=== PATIENT | female | born 1940 | race Caucasian/White ===

== ENCOUNTER → 2024-03-31 09:46 | Outpatient (REF) | payer MEDICARE, BC, SELFPAY ==
[2024-03-31 10:59] LABS: % Basophils 1.1 % (0-2); % Eosinophils 4.7 % (0-6); % Immature Granulocytes 0.2 % (0-0.5); % Lymphocytes 30.6 % (20.5-51.1); % Monocytes 13.2 % (1.7-9.3); % Neutrophils 50.2 % (42.2-75.2); Absolute Basophils 0.1 10^3/uL (0-0.2); Absolute Eosinophils 0.3 10^3/uL (0-0.7); Absolute Lymphocytes 1.9 10^3/uL (1.2-3.4); Absolute Monocytes 0.8 10^3/uL (0.1-0.6); Absolute Neutrophils 3.1 10^3/uL (1.4-6.5); Hematocrit 28.6 % (37.0-47.0); Mean Corp Hgb Conc. 31.5 g/dL (33.0-37.0); Mean Corpuscular Hgb 24.9 pg (27.0-31.0); Mean Corpuscular Volume 79.2 fL (81.0-99.0); Nucleated Red Blood Cells % 0 %; Platelet Count 181 10^3/uL (130-400); Red Blood Cell Count 3.61 10^6/uL (4.20-5.40); Red Cell Dist. Width 15.8 % (11.5-14.5); White Blood Cell Count 6.2 10^3/uL (4.8-10.8)
[2024-03-31 11:00] LABS: INR 1.41
[2024-03-31 11:58] LABS: ALT (SGPT) 18 U/L (0-35); AST (SGOT) 37 U/L (14-36); Albumin 3.5 g/dl (3.5-5.0); Alkaline Phosphatase 156 U/L (38-126); Blood Urea Nitrogen 15 mg/dl (7-17); Calcium 8.7 mg/dl (8.4-10.2); Carbon Dioxide 25 mmol/L (22-30); Chloride 109 mmol/L (98-107); Glucose 96 mg/dl (70-99); Iron 45 ug/dl (37-170); Potassium 4.4 mmol/L (3.5-5.1); Sodium 141 mmol/L (135-145); Total Bilirubin 0.7 mg/dl (0.2-1.3); eGFR > 60.00
[2024-03-31 12:04] LABS: IgA 209 mg/dl (70-400)
[2024-03-31 12:08] LABS: Percent Saturation 10 % (20-50); Total Iron Binding Capacity 449 ug/dl (265-497)
[2024-03-31 14:33] LABS: Rheumatoid Agglutinin Less Than 10 IU (<10 IU)
[2024-03-31 20:16] LABS: AFP Male/Tumor Marker 4.26 ng/ml
[2024-04-01 18:50] LABS: Ceruloplasmin 26 mg/dL (16-45)
[2024-04-02 02:03] LABS: CCP Antibody IgG/IgA 7 Units (0-19)
[2024-04-02 02:45] LABS: F-Actin Antibody IgG 14 Units (0-19); Mitochondrial M2 Ab, IgG 9.6 Units (0.0-24.9)
[2024-04-02 11:21] LABS: Centromere Antibody 1 AU/mL (0-40); Jo-1 Antibodies 1 AU/mL (0-40); SSA 52 (Ro)(ENA) Ab, IgG 4 AU/mL (0-40); SSA 60 (Ro)(ENA) Ab, IgG 0 AU/mL (0-40); SSB (La)(ENA) Ab, IgG 1 AU/mL (0-40); Scleroderma Antibody (Scl-70) 1 AU/mL (0-40)
[2024-04-02 16:13] LABS: Endomysial IgA Antibody Titer <1:10 (<1:10)
[2024-04-02 22:33] LABS: ANA, IgG Reflex to HEp-2 Detected (None Detected)
== END ==
LOC: REG 09:46
PROVIDERS: ATTENDING PHYSICIAN Internal Medicine Gastroenterology; FAMILY PHYSICIAN Nurse Practitioner Adult Health; REFERRING PHYSICIAN Internal Medicine Critical Care Medicine
DX: J18.9 Pneumonia, unspecified organism (principal); N18.30 Chronic kidney disease, stage 3 unspecified; I48.0 Paroxysmal atrial fibrillation; R79.89 Other specified abnormal findings of blood chemistry; J84.10 Pulmonary fibrosis, unspecified
CPT/HCPCS: 36415; 80053; 82103; 82104; 82105; 82390; 82728; 82784; 83516; 83540; 83550; 85025; 85610; 86015; 86038; 86200; 86231; 86235; 86331; 86381; 86430; 86606

== ENCOUNTER 2024-04-27 16:18 | Emergency (ER) | payer MEDICARE, BC, SELFPAY ==
[2024-04-27 16:23] VITALS: BP 124/56
[2024-04-27 16:52] LABS: APTT 31.6 Sec (23.4-35.0)
[2024-04-27 17:00] LABS: ALT (SGPT) 19 U/L (0-35); AST (SGOT) 39 U/L (14-36); Albumin 3.6 g/dl (3.5-5.0); Alkaline Phosphatase 141 U/L (38-126); Blood Urea Nitrogen 21 mg/dl (7-17); Calcium 8.6 mg/dl (8.4-10.2); Carbon Dioxide 23 mmol/L (22-30); Chloride 107 mmol/L (98-107); Glucose 124 mg/dl (70-99); Potassium 4.7 mmol/L (3.5-5.1); Sodium 137 mmol/L (135-145); Total Bilirubin 0.4 mg/dl (0.2-1.3); Total Protein 7.8 g/dl (6.3-8.2); eGFR 49.24
[2024-04-27 18:05] VITALS: BP 126/52
--- NOTE | 2024-04-27 18:22 | ED.GENMED ---
History of Present Illness
General
Chief Complaint: Weakness
Source: patient and spouse
Exam Limitations: none
Time Seen by Provider: 04/27/24 17:54
History of Present Illness
History of Present Illness:
This is a 83 year old female that comes in with . states that she has been having nose bleeds for the past 3 weeks. States that she will have a severe nose bleed 3 times a week. States that she was on Eliquis and he stopped this last
night. called the PCP today and patient has labs done last month and she looked at them. state that her Hgb was low and with the nose bleeding he was told to bring her to the ER. States that she has been feeling weak, lightheaded and dizzy
as the room is spinning. States that she has oxygen at home to use if she needed this and she has been using the oxygen more then her normal as she feels SOB. Denies any fever, chills, chest pain, abd pain, nausea, vomiting, diarrhea, black or
bloody stool, headache, urinary burning.
Past History
Past History
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
ED Past Surgical History: Cholecystectomy, Gynecological (Hysterectomy), Orthopedic (Knee surgery, Right shoulder replacement, Right ankle sx) and Other ( Spencer Cataracts)
Social History
Tobacco: Former smoker
Alcohol: None
Drug: None
Personal:
Living: with family
Family History
Family History: Other
Review of Systems
Review of Systems
All Other Systems: ROS reviewed and negative except as documented in HPI and ROS
Constitutional: Reports no symptoms; Denies fever or chills
EENT: Reports no symptoms
Respiratory: Reports trouble breathing; Denies cough
Cardiac: Reports no symptoms; Denies chest pain
ABD/GI: Reports no symptoms; Denies abdominal pain, nausea, vomiting, diarrhea, bloody stools or black stools
: Reports no symptoms; Denies dysuria, frequency or urgency
Musculoskeletal: Reports no symptoms
Skin: Reports no symptoms
Neurological: Reports dizzy (Not at this time); Denies headache
Psychiatric: Reports no symptoms
Phy Exam
General Physical Exam
General Presentation: no apparent distress
General age: appears stated age
General Skin: warm and dry
General Habitus: elderly
General Mental: alert
General Hydration: appears well hydrated
ENT Exam
ENT Exam: TM's normal, pharynx normal and neck supple
Eye Exam
Eye Exam: EOMI
Cardiovascular Exam
Cardiovascular Exam: regular rate/rhythm, no edema and normal peripheral pulses
Pulmonary Exam
Pulmonary Exam: lungs clear, no respiratory distress, no rales, chest non tender, no crackles, no rhonchi, no wheezing and no cough
Gastrointestinal Exam
Gastrointestinal Exam: normal bowel sounds, non tender, soft, no organomegaly, no pulsatile mass, non distended and other (Stool brown hem negative)
Musculoskeletal Exam
Musculoskeletal Exam: full ROM and no edema
Skin Exam
Skin Exam: normal color, warm/dry, no rash and no petechia
Psychiatric Exam
Psychiatric Exam: normal mood/affect
Course
Orders/Labs/Results
Orders:
Orders
04/27/24 16:31
Comprehensive Metabolic Panel Urgent
PTT Urgent
TSH Reflex To Free T4 Urgent
Comment: ADD ON
04/27/24 18:12
CT Head W/o Iv Contrast Urgent
Comment: 3 prior CVA
Reason For Exam: Dizziness
04/27/24 18:13
0.9% Sodium Chloride 500 ml [Nss] 500 ml IV BOLUS
CR Chest - 2 Views Urgent
Comment:
Reason For Exam: SOB
04/27/24 18:14
Electrocardiogram (*1) Urgent
Reason for Study: Shortness of Breath
EKG- Treatment ONCE
04/27/24 18:27
Troponin I Urgent
04/27/24 18:30
Add On- LAB Urgent
Tests Added?: TSH with reflex Free T4
04/27/24 18:59
Complete Blood Count/With Diff Urgent
04/27/24 21:03
Urinalysis Reflex To Culture Urgent
Date Specimen was Collected: 04/27/24
Time Specimen was Collected: 20:58
Urine Microscopic Reflex Cult Urgent
Urine Culture Urgent
KATHIA Source: U
Specimen Description:
Date Specimen was Collected: 04/27/24
Time Specimen was Collected: 20:58
Abnormal Lab Results
04/27/24 04/27/24 04/27/24
16:31 18:59 21:03
RBC 3.46 L 10^6/uL
(4.20-5.40)
Hgb 8.2 L g/dL
(12.0-16.0)
Hct 26.4 L %
(37.0-47.0)
MCV 76.3 L fL
(81.0-99.0)
MCH 23.7 L pg
(27.0-31.0)
MCHC 31.1 L g/dL
(33.0-37.0)
RDW 16.3 H %
(11.5-14.5)
MPV 12.8 H fL
(7.4-10.4)
Absolute Monos (auto) 1.0 H 10^3/uL
(0.1-0.6)
Monocytes % 14.2 H %
(1.7-9.3)
BUN 21 H mg/dl
(7-17)
Creatinine 1.1 H mg/dL
(0.6-1.0)
Glucose 124 H mg/dl
(70-99)
AST 39 H U/L
(14-36)
Alkaline Phosphatase 141 H U/L
(38-126)
Leukocyte Esterase Rfl 1+ A
(Negative)
Urine WBC (Reflex) 11-15 A /HPF
(0-5)
Urine Bacteria (Reflex) Many A
(Negative)
04/27/24 18:59
04/27/24 16:31
H/H slightly low. Anemic, Slight Dehydration. Glucose nonfasting. AST slightly elevated. Alk phos elevation. PT 31.6, Troponin <0.012, TSH normal at 1.79, Urine positive for infection.
Vital Signs
Initial and Last Documented VS:
Initial Vital Signs
Temp Pulse Resp BP Pulse Ox
98.3 F 58 20 124/56 93
04/27/24 16:23 04/27/24 16:23 04/27/24 16:23 04/27/24 16:23 04/27/24 16:23
Last Documented Vital Signs
Temp Pulse Resp BP Pulse Ox
98.3 F 70 15 156/71 94
04/27/24 16:23 04/27/24 22:15 04/27/24 22:15 04/27/24 22:00 04/27/24 22:15
MDM/Problems Addressed
Differential Diagnosis Includes:
Anemia, CVA, UTI, Dehydration
MDM/Problems Addressed:
This is a 83 year old female that was on Eliquis up until last night. states that he stopped the Eliquis as patient keeps getting nose bleeds that are severe. State that he called the PCP and they looked at labs that were a month ago and he
was told that hr Hgb was low to come to the ER.
will get labs, Urine. CT head and given IV fluids.
back into see patient and . Explained that her blood work shows that she is anemic and a little dehydration. Her Urine appears to be positive for infection. Patient will be given Monurol here. Encouraged patient to increase her water intake
to 8-8oz glasses daily. Follow up with the family doctor for recheck. Return with any concerns.
Chronic conditions affecting care:
Prior CVA X 3,
Chronic conditions affecting care: CAD
Acute Exacerbation and/or Progression of Chronic Illness:
NA
*Radiology
Radiology exam reviewed: radiology read reviewed (Chest-No convincing acute cardiopulmonary process. Findings suggesting chronic interstitial lung disease CT head- NO acute intracranial abnormality noted. )
*Pulse Oximetry
Patient hypoxic: no
*Staff Nuclear Weapons Officer Interpretation
Rate: normal
Heart Rate: 63
Rhythm: sinus
*Critical Care Note
Total Time (30-74mins, 75-104mins- exclusive of procedures): Not Applicable
ED Attending Note
-
Portions of this chart may have been created with voice recognition software.� Occasional wrong word or��sound alike� substitutions may have occurred due to the inherent limitations of voice recognition software.
Discharge Plan
Departure
Patient Disposition: Home (Routine Discharge)
Date of Disposition: 04/27/24
Time of Disposition: 22:19
Patient with high blood pressure during this ER visit?: Yes
Condition: Good
Covid-19: Not Applicable
Discharge Problem:
Acute UTI (urinary tract infection)
Instructions: Urinary Tract Infection, Adult ED, BLOOD PRESSURE
Prescriptions:
No Action
bupropion HCl 150 MG tablet extended release 24 hr
150 mg PO DAILY
citalopram 40 mg tablet
40 mg PO DAILY
lisinopril 40 mg tablet
40 mg PO DAILY
famotidine 20 mg tablet
20 mg PO HS Qty: 30 0RF
Rx Instructions:
post-op
atorvastatin 20 mg tablet
20 mg PO HS Qty: 30 2RF
Rx Instructions:
with dinner
heart and stroke prevention
docusate sodium [Colace] 100 mg capsule
100 mg PO DAILY
diltiazem HCl 180 mg Capsule,Extended Release 24hr
180 mg PO DAILY Qty: 30 0RF
Eliquis 5 mg Tablet
5 mg PO BID Qty: 60 0RF
guaifenesin 600 mg Tablet Extended Release 12hr
1,200 mg PO Q12 3 Days Qty: 12 0RF
doxycycline hyclate 100 mg Capsule
100 mg PO Q12 1 Days Qty: 2 0RF
cefdinir 300 mg capsule
300 mg PO Q12H 1 Days Qty: 2 0RF
Referrals:
NONE,* [Active] -
Activity Restrictions/Additional Instructions:
As discussed, your blood work shows that you are anemic and slightly Dehydration. Please increase your water intake to 8-8oz glasses daily. Your urine also shows infection. You have been an antibiotic here that is all that is needed. Follow up with
the family doctor for recheck. IF YOU HAVE ANY OTHER CONCERNS PLEASE RETURN TO THE EMERGENCY ROOM.
Interventions
Interventions:
*Risk Screen - Suicide Last Done: 04/27/24 16:23
*General Assessment Last Done: 04/27/24 16:23
*Neglect/Abuse Screening Last Done: 04/27/24 16:23
ED- Cardiac Assessment Last Done: 04/27/24 18:00
ED- Neurological Assessment Last Done: 04/27/24 18:00
ED- Pulmonary Assessment Last Done: 04/27/24 18:00
Discharge Date and Time
Print Language: BELARUSIAN
[2024-04-27 19:00] LABS: Troponin I < 0.012 ng/ml
[2024-04-27] MEDS: NSS 500 IV (19:01)
[2024-04-27 19:06] LABS: % Basophils 1.3 % (0-2); % Eosinophils 3.6 % (0-6); % Immature Granulocytes 0.3 % (0-0.5); % Lymphocytes 28.6 % (20.5-51.1); % Monocytes 14.2 % (1.7-9.3); Absolute Basophils 0.1 10^3/uL (0-0.2); Absolute Eosinophils 0.3 10^3/uL (0-0.7); Absolute Neutrophils 3.6 10^3/uL (1.4-6.5); Hematocrit 26.4 % (37.0-47.0); Hemoglobin 8.2 g/dL (12.0-16.0); Mean Corp Hgb Conc. 31.1 g/dL (33.0-37.0); Mean Corpuscular Hgb 23.7 pg (27.0-31.0); Mean Corpuscular Volume 76.3 fL (81.0-99.0); Mean Platelet Volume 12.8 fL (7.4-10.4); Nucleated Red Blood Cells % 0 %; Platelet Count 183 10^3/uL (130-400); Red Blood Cell Count 3.46 10^6/uL (4.20-5.40); Red Cell Dist. Width 16.3 % (11.5-14.5)
[2024-04-27 19:18] VITALS: BP 128/77
[2024-04-27 19:47] LABS: TSH Reflex To Free T4 1.79 uIU/ml (0.47-4.68)
[2024-04-27 20:00] VITALS: BP 145/72
[2024-04-27 21:00] VITALS: BP 150/60
[2024-04-27 21:09] LABS: Urine Albumin Negative (Neg - Trace); Urine Bilirubin Negative (Negative); Urine Character Clear (Clear); Urine Color Yellow; Urine Glucose Negative (Negative); Urine Ketone Negative (Negative); Urine Leukocyte 1+ (Negative); Urine Nitrite Negative (Negative); Urine Occult Blood Negative (Negative); Urine Specific Gravity 1.015 (<1.030); Urine Urobilinogen 1+ (Neg - 1+); Urine pH 6.5 (5.0-9.0)
[2024-04-27 21:15] LABS: Urine Bacteria Many (Negative); Urine Red Blood Cell 0-2 /HPF (0-2)
[2024-04-27 22:00] VITALS: BP 156/71
[2024-04-27] MEDS: MONUROL 3 GM PO (22:23)
== END 2024-04-27 22:35 | disposition home or self-care (01) ==
LOC: EMR 16:18
PROVIDERS: Clinical Nurse Specialist Family Health; Emergency Medicine; EMERGENCY PHYSICIAN Emergency Medicine; FAMILY PHYSICIAN Nurse Practitioner Adult Health
DX: N39.0 Urinary tract infection, site not specified (principal); K21.9 Gastro-esophageal reflux disease without esophagitis; I10 Essential (primary) hypertension; E78.00 Pure hypercholesterolemia, unspecified; I25.2 Old myocardial infarction; E03.9 Hypothyroidism, unspecified; F32.A Depression, unspecified; D64.9 Anemia, unspecified; I25.10 Atherosclerotic heart disease of native coronary artery without angina pectoris; Z86.73 Personal history of transient ischemic attack (TIA), and cerebral infarction without residual deficits; Z87.440 Personal history of urinary (tract) infections; Z87.891 Personal history of nicotine dependence; Z90.49 Acquired absence of other specified parts of digestive tract; Z90.710 Acquired absence of both cervix and uterus; Z96.611 Presence of right artificial shoulder joint; Z96.612 Presence of left artificial shoulder joint
CPT/HCPCS: 99284; 96360; 70450; 71046; 80053; 81003; 81015; 84443; 84484; 85025; 85730; 87086; 93005

== ENCOUNTER → 2024-05-02 13:15 | Outpatient (REF) | payer MEDICARE, BC, SELFPAY | LOC: RAD 13:15 | PROVIDERS: ATTENDING PHYSICIAN Internal Medicine Critical Care Medicine; FAMILY PHYSICIAN Nurse Practitioner Adult Health | DX: J84.10 Pulmonary fibrosis, unspecified (principal) | CPT/HCPCS: 71250 ==

== ENCOUNTER 2024-05-23 13:17 | Emergency (ER) | payer MEDICARE, BC, SELFPAY ==
[2024-05-23 13:20] VITALS: BP 130/55
[2024-05-23 14:23] LABS: % Eosinophils 3.9 % (0-6); % Immature Granulocytes 0.2 % (0-0.5); % Lymphocytes 29.1 % (20.5-51.1); % Monocytes 13.6 % (1.7-9.3); % Neutrophils 52.2 % (42.2-75.2); Absolute Basophils 0.1 10^3/uL (0-0.2); Absolute Eosinophils 0.2 10^3/uL (0-0.7); Absolute Lymphocytes 1.8 10^3/uL (1.2-3.4); Absolute Monocytes 0.9 10^3/uL (0.1-0.6); Absolute Neutrophils 3.3 10^3/uL (1.4-6.5); Hematocrit 24.6 % (37.0-47.0); Hemoglobin 7.8 g/dL (12.0-16.0); Mean Corp Hgb Conc. 31.7 g/dL (33.0-37.0); Mean Corpuscular Volume 72.6 fL (81.0-99.0); Mean Platelet Volume 11.4 fL (7.4-10.4); Nucleated Red Blood Cells % 0 %; Platelet Count 206 10^3/uL (130-400); Red Blood Cell Count 3.39 10^6/uL (4.20-5.40); Red Cell Dist. Width 16.6 % (11.5-14.5); White Blood Cell Count 6.2 10^3/uL (4.8-10.8)
--- NOTE | 2024-05-23 14:27 | ED.GENMED ---
History of Present Illness
General
Chief Complaint: Nose Bleed
Source: patient
Exam Limitations: none
Time Seen by Provider: 05/23/24 13:56
History of Present Illness
History of Present Illness:
84 year old female presents with recurrent right sided nose bleed that lasted 30 minutes today. She was here several weeks ago for the same and was told to stop the eliquis. She was also told her HGb is low and was told to come back for any
further bleeding due to he anemia. She states she feels weak. No pain. The bleeding has been stopped for over 3 hours. no other complaints.
Past History
Past History
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
ED Past Surgical History: Cholecystectomy, Gynecological (Hysterectomy), Orthopedic (Knee surgery, Right shoulder replacement, Right ankle sx) and Other ( Spencer Cataracts)
Social History
Tobacco: Former smoker
Alcohol: None
Drug: None
Personal:
Living: with family
Family History
Family History: Other
Phy Exam
Physical Exam
Physical Exam:
General: WEll appearing female NAD
HEENT: NC/At bilateral nasal cavities without blood, and no sign of recent bleeding
Heart: RRR, no murmurs
Lungs CTA bilaterally
ext: no cyanosis or edema
Course
Orders/Labs/Results
Orders:
Orders
05/23/24 14:14
Complete Blood Count/With Diff Urgent
Comprehensive Metabolic Panel Urgent
05/23/24 14:47
Blood Bank Products [* Blood Bank Products] Urgent
Blood Bank Products: *Packed RBC Leuko(PRBC's)
Quantity: 1
Transfuse Today: Yes
Reason: Anemia
05/23/24 15:03
Type+Screen Urgent
Abnormal Lab Results
05/23/24 05/23/24
14:14 15:03
RBC 3.39 L 10^6/uL
(4.20-5.40)
Hgb 7.8 L g/dL
(12.0-16.0)
Hct 24.6 L %
(37.0-47.0)
MCV 72.6 L fL
(81.0-99.0)
MCH 23.0 L pg
(27.0-31.0)
MCHC 31.7 L g/dL
(33.0-37.0)
RDW 16.6 H %
(11.5-14.5)
MPV 11.4 H fL
(7.4-10.4)
Absolute Monos (auto) 0.9 H 10^3/uL
(0.1-0.6)
Monocytes % 13.6 H %
(1.7-9.3)
BUN 20 H mg/dl
(7-17)
Creatinine 1.2 H mg/dL
(0.6-1.0)
Crossmatch IS Only See Detail
05/23/24 14:14
05/23/24 14:14
Vital Signs
Initial and Last Documented VS:
Initial Vital Signs
Temp Pulse Resp BP Pulse Ox
97.5 F 61 18 130/55 94
05/23/24 13:20 05/23/24 13:20 05/23/24 13:20 05/23/24 13:20 05/23/24 13:20
Last Documented Vital Signs
Temp Pulse Resp BP Pulse Ox
98.2 F 86 18 142/54 92
05/23/24 17:17 05/23/24 17:17 05/23/24 17:17 05/23/24 17:17 05/23/24 15:58
MDM/Problems Addressed
Differential Diagnosis Includes:
Recurrent nose bleed.
Not currently bleeding. Vitals are stable
Hgb is 7.8 today, down from 8.2 3 weeks ago.
*Critical Care Note
Total Time (30-74mins, 75-104mins- exclusive of procedures): Not Applicable
Update Note
Update Note:
Patient received a unit of packed red blood cells and transfusion. She has remained to have stable vital signs. Will discharge home with instructions to have patient follow-up with family doctor for recheck of blood work. Stable for discharge
ED Attending Note
-
Portions of this chart may have been created with voice recognition software.� Occasional wrong word or��sound alike� substitutions may have occurred due to the inherent limitations of voice recognition software.
Discharge Plan
Departure
Patient Disposition: Home (Routine Discharge)
Date of Disposition: 05/23/24
Time of Disposition: 17:17
Patient with high blood pressure during this ER visit?: No
Discharge Problem:
Anemia, Epistaxis
Instructions: Nosebleeds (DC)
Prescriptions:
No Action
bupropion HCl 150 MG tablet extended release 24 hr
150 mg PO DAILY
citalopram 40 mg tablet
40 mg PO DAILY
lisinopril 40 mg tablet
40 mg PO DAILY
famotidine 20 mg tablet
20 mg PO HS Qty: 30 0RF
Rx Instructions:
post-op
atorvastatin 20 mg tablet
20 mg PO HS Qty: 30 2RF
Rx Instructions:
with dinner
heart and stroke prevention
docusate sodium [Colace] 100 mg capsule
100 mg PO DAILY
diltiazem HCl 180 mg Capsule,Extended Release 24hr
180 mg PO DAILY Qty: 30 0RF
Eliquis 5 mg Tablet
5 mg PO BID Qty: 60 0RF
guaifenesin 600 mg Tablet Extended Release 12hr
1,200 mg PO Q12 3 Days Qty: 12 0RF
doxycycline hyclate 100 mg Capsule
100 mg PO Q12 1 Days Qty: 2 0RF
cefdinir 300 mg capsule
300 mg PO Q12H 1 Days Qty: 2 0RF
Referrals:
Aleena Retana CRNP [Family Provider] -
Activity Restrictions/Additional Instructions:
Please follow-up with your family doctor next week for recheck for your blood work.
Interventions
Interventions:
*Risk Screen - Suicide Last Done: 05/23/24 13:20
*General Assessment Last Done: 05/23/24 13:20
*Neglect/Abuse Screening Last Done: 05/23/24 13:20
ED- Fall Risk Assessment Last Done: 05/23/24 18:05
*Nursing Disposition Last Done: 05/23/24 18:05
ED-EENT Assessment Last Done: 05/23/24 14:18
Discharge Date and Time
Discharge Date/Time: 05/23/24 18:05
Print Language: MALTESE
[2024-05-23 14:41] LABS: AST (SGOT) 32 U/L (14-36); Albumin 3.5 g/dl (3.5-5.0); Blood Urea Nitrogen 20 mg/dl (7-17); Calcium 8.6 mg/dl (8.4-10.2); Carbon Dioxide 24 mmol/L (22-30); Glucose 92 mg/dl (70-99); Total Bilirubin 0.4 mg/dl (0.2-1.3); Total Protein 7.3 g/dl (6.3-8.2); eGFR 44.08
[2024-05-23 14:43] LABS: ALT (SGPT) 16 U/L (0-35)
[2024-05-23 15:11] LABS: Alkaline Phosphatase 126 U/L (38-126); Chloride 105 mmol/L (98-107); Sodium 137 mmol/L (135-145)
[2024-05-23 15:58] VITALS: BP 124/51
[2024-05-23 16:16] VITALS: BP 114/53
[2024-05-23 17:17] VITALS: BP 142/54
== END 2024-05-23 18:05 | disposition home or self-care (01) ==
LOC: EMR 13:17
PROVIDERS: Physician Assistant; EMERGENCY PHYSICIAN Emergency Medicine; FAMILY PHYSICIAN Nurse Practitioner Adult Health
DX: R04.0 Epistaxis (principal); K21.9 Gastro-esophageal reflux disease without esophagitis; I10 Essential (primary) hypertension; E78.00 Pure hypercholesterolemia, unspecified; I25.2 Old myocardial infarction; E03.9 Hypothyroidism, unspecified; D64.9 Anemia, unspecified; Z87.891 Personal history of nicotine dependence
CPT/HCPCS: 99283; 80053; 85025; 86850; 86900; 86901; 86920; P9016

== ENCOUNTER → 2024-07-25 13:40 | Outpatient (REF) | payer MEDICARE, BC, SELFPAY ==
[2024-07-25 14:32] LABS: % Basophils 1.1 % (0-2); % Eosinophils 2.4 % (0-6); % Immature Granulocytes 0.3 % (0-0.5); % Lymphocytes 23.8 % (20.5-51.1); % Monocytes 13.2 % (1.7-9.3); % Neutrophils 59.2 % (42.2-75.2); Absolute Basophils 0.1 10^3/uL (0-0.2); Absolute Eosinophils 0.2 10^3/uL (0-0.7); Absolute Lymphocytes 2.2 10^3/uL (1.2-3.4); Absolute Monocytes 1.2 10^3/uL (0.1-0.6); Absolute Neutrophils 5.5 10^3/uL (1.4-6.5); Hematocrit 31.1 % (37.0-47.0); Hemoglobin 9.5 g/dL (12.0-16.0); Mean Corp Hgb Conc. 30.5 g/dL (33.0-37.0); Mean Corpuscular Hgb 22.7 pg (27.0-31.0); Mean Corpuscular Volume 74.2 fL (81.0-99.0); Mean Platelet Volume 11.3 fL (7.4-10.4); Nucleated Red Blood Cells % 0 %; Platelet Count 212 10^3/uL (130-400); Red Blood Cell Count 4.19 10^6/uL (4.20-5.40); Red Cell Dist. Width 20.8 % (11.5-14.5); White Blood Cell Count 9.3 10^3/uL (4.8-10.8)
[2024-07-25 14:42] LABS: HDL Cholesterol 65 mg/dl; LDL Cholesterol, Calculated 81 mg/dl; Total Cholesterol 183 mg/dl (50-199); Triglyceride 186 mg/dl (10-149); Very Low Density Lipoprotein 37 mg/dl (0-30)
[2024-07-25 14:43] LABS: ALT (SGPT) 22 U/L (0-35); AST (SGOT) 44 U/L (14-36); Albumin 3.9 g/dl (3.5-5.0); Alkaline Phosphatase 142 U/L (38-126); Blood Urea Nitrogen 13 mg/dl (7-17); Calcium 9.1 mg/dl (8.4-10.2); Carbon Dioxide 29 mmol/L (22-30); Chloride 104 mmol/L (98-107); Glucose 71 mg/dl (70-99); Iron 42 ug/dl (37-170); Potassium 4.9 mmol/L (3.5-5.1); Sodium 143 mmol/L (135-145); Total Bilirubin 0.5 mg/dl (0.2-1.3); Total Protein 7.9 g/dl (6.3-8.2); eGFR 54.87
[2024-07-25 15:05] LABS: Percent Saturation 8 % (20-50); Total Iron Binding Capacity 482 ug/dl (265-497)
[2024-07-25 15:26] LABS: Vitamin D, 25-OH*** 31.5 ng/mL (30-80)
[2024-07-25 15:40] LABS: TSH Reflex To Free T4 9.94 uIU/ml (0.47-4.68)
[2024-07-25 16:06] LABS: Free T4 1.22 ng/dl (0.78-2.19)
[2024-07-26 09:23] LABS: Glycohemoglobin (HgbA1c) 6.1 % (4.0-5.6)
== END ==
LOC: REG 13:40
PROVIDERS: ATTENDING PHYSICIAN Internal Medicine Cardiovascular Disease; FAMILY PHYSICIAN Nurse Practitioner Adult Health
DX: Z71.2 Person consulting for explanation of examination or test findings (principal); R79.9 Abnormal finding of blood chemistry, unspecified; R79.89 Other specified abnormal findings of blood chemistry; Z13.220 Encounter for screening for lipoid disorders; E78.5 Hyperlipidemia, unspecified; E34.9 Endocrine disorder, unspecified; Z13.29 Encounter for screening for other suspected endocrine disorder; R73.09 Other abnormal glucose; I10 Essential (primary) hypertension; E55.9 Vitamin D deficiency, unspecified; D62 Acute posthemorrhagic anemia; R04.0 Epistaxis; I48.0 Paroxysmal atrial fibrillation; Z86.73 Personal history of transient ischemic attack (TIA), and cerebral infarction without residual deficits; N18.30 Chronic kidney disease, stage 3 unspecified
CPT/HCPCS: 36415; 80053; 80061; 82306; 82728; 83036; 83540; 83550; 84439; 84443; 85025

== ENCOUNTER 2024-11-24 15:02 | Outpatient (RCR) | payer MEDICARE, BC, SELFPAY | END 2024-11-24 23:59 | disposition home or self-care (01) | LOC: ROT 15:02 | PROVIDERS: ATTENDING PHYSICIAN Orthopaedic Surgery Hand Surgery; FAMILY PHYSICIAN Internal Medicine | DX: S62.291D Other fracture of first metacarpal bone, right hand, subsequent encounter for fracture with routine healing (principal); S52.591D Other fractures of lower end of right radius, subsequent encounter for closed fracture with routine healing; Z73.6 Limitation of activities due to disability | CPT/HCPCS: 97022; 97110; 97140; 97166; 97535 ==

== ENCOUNTER 2024-12-22 15:57 | Outpatient (RCR) | payer MEDICARE, BC, SELFPAY | END 2024-12-22 23:59 | disposition home or self-care (01) | LOC: ROT 15:57 | PROVIDERS: ATTENDING PHYSICIAN Orthopaedic Surgery Hand Surgery; FAMILY PHYSICIAN Internal Medicine | DX: S62.291D Other fracture of first metacarpal bone, right hand, subsequent encounter for fracture with routine healing (principal); S52.591D Other fractures of lower end of right radius, subsequent encounter for closed fracture with routine healing; Z73.6 Limitation of activities due to disability; X58.XXXD Exposure to other specified factors, subsequent encounter | CPT/HCPCS: 97022; 97110; 97140 ==

== ENCOUNTER → 2025-01-10 09:50 | Outpatient (REF) | payer MEDICARE, BC, SELFPAY ==
[2025-01-10 11:48] LABS: % Basophils 1.4 % (0-2); % Eosinophils 3.7 % (0-6); % Immature Granulocytes 0.4 % (0-0.5); % Lymphocytes 27.8 % (20.5-51.1); % Monocytes 12.4 % (1.7-9.3); % Neutrophils 54.3 % (42.2-75.2); Absolute Basophils 0.1 10^3/uL (0-0.2); Absolute Eosinophils 0.3 10^3/uL (0-0.7); Absolute Lymphocytes 2.3 10^3/uL (1.2-3.4); Absolute Neutrophils 4.4 10^3/uL (1.4-6.5); Hematocrit 46.6 % (37.0-47.0); Mean Corp Hgb Conc. 34.3 g/dL (33.0-37.0); Mean Corpuscular Hgb 30.9 pg (27.0-31.0); Mean Platelet Volume 12.9 fL (7.4-10.4); Nucleated Red Blood Cells % 0 %; Platelet Count 149 10^3/uL (130-400); Red Blood Cell Count 5.18 10^6/uL (4.20-5.40); Red Cell Dist. Width 14.4 % (11.5-14.5); White Blood Cell Count 8.1 10^3/uL (4.8-10.8)
[2025-01-10 12:32] LABS: ALT (SGPT) 26 U/L (0-35); AST (SGOT) 48 U/L (14-36); Albumin 3.8 g/dl (3.5-5.0); Alkaline Phosphatase 178 U/L (38-126); Blood Urea Nitrogen 15 mg/dl (7-17); Calcium 9.3 mg/dl (8.4-10.2); Carbon Dioxide 29 mmol/L (22-30); Chloride 104 mmol/L (98-107); Glucose 108 mg/dl (70-99); Iron 172 ug/dl (37-170); Potassium 4.4 mmol/L (3.5-5.1); Sodium 138 mmol/L (135-145); Total Bilirubin 1.1 mg/dl (0.2-1.3); Total Protein 7.9 g/dl (6.3-8.2); eGFR 54.87
[2025-01-10 12:41] LABS: Percent Saturation 50 % (20-50); Total Iron Binding Capacity 344 ug/dl (265-497)
[2025-01-10 13:21] LABS: Free T4 0.39 ng/dl (0.78-2.19)
== END ==
LOC: REG 09:50
PROVIDERS: ATTENDING PHYSICIAN Nurse Practitioner Adult Health; REFERRING PHYSICIAN Internal Medicine Cardiovascular Disease
DX: I10 Essential (primary) hypertension (principal); R29.6 Repeated falls; Z51.81 Encounter for therapeutic drug level monitoring; Z79.899 Other long term (current) drug therapy; D62 Acute posthemorrhagic anemia; R04.0 Epistaxis; I48.0 Paroxysmal atrial fibrillation; Z86.73 Personal history of transient ischemic attack (TIA), and cerebral infarction without residual deficits; N18.30 Chronic kidney disease, stage 3 unspecified; Z00.00 Encounter for general adult medical examination without abnormal findings; E03.9 Hypothyroidism, unspecified
CPT/HCPCS: 36415; 80053; 82728; 83540; 83550; 84439; 84443; 85025

== ENCOUNTER → 2025-03-28 08:04 | Outpatient (REF) | payer MEDICARE, BC, SELFPAY | LOC: RCS 08:04 | PROVIDERS: ATTENDING PHYSICIAN Internal Medicine Cardiovascular Disease; FAMILY PHYSICIAN Nurse Practitioner Adult Health | DX: I42.8 Other cardiomyopathies (principal); R06.09 Other forms of dyspnea | CPT/HCPCS: 78452; 93017; A9500; J2785 ==

== ENCOUNTER → 2025-06-06 10:11 | Outpatient (REF) | payer MEDICARE, BC, SELFPAY ==
[2025-06-06 11:53] LABS: ALT (SGPT) 21 U/L (0-35); AST (SGOT) 38 U/L (14-36); Albumin 3.8 g/dl (3.5-5.0); Alkaline Phosphatase 129 U/L (38-126); Blood Urea Nitrogen 16 mg/dl (7-17); Calcium 8.9 mg/dl (8.4-10.2); Carbon Dioxide 29 mmol/L (22-30); Chloride 106 mmol/L (98-107); Glucose 94 mg/dl (70-99); HDL Cholesterol 59 mg/dl; LDL Cholesterol, Calculated 44 mg/dl; Potassium 4.5 mmol/L (3.5-5.1); Sodium 140 mmol/L (135-145); Total Protein 8.3 g/dl (6.3-8.2); Very Low Density Lipoprotein 26 mg/dl (0-30); eGFR 43.81
[2025-06-06 12:33] LABS: Glycohemoglobin (HgbA1c) 6.2 % (4.0-5.6)
== END ==
LOC: REG 10:11
PROVIDERS: ATTENDING PHYSICIAN Internal Medicine Cardiovascular Disease; FAMILY PHYSICIAN Nurse Practitioner Adult Health
DX: E03.9 Hypothyroidism, unspecified (principal); R73.01 Impaired fasting glucose; Z71.2 Person consulting for explanation of examination or test findings; R79.9 Abnormal finding of blood chemistry, unspecified; R79.89 Other specified abnormal findings of blood chemistry; I50.9 Heart failure, unspecified; Z13.220 Encounter for screening for lipoid disorders; E78.5 Hyperlipidemia, unspecified; E34.9 Endocrine disorder, unspecified; Z13.29 Encounter for screening for other suspected endocrine disorder; R73.09 Other abnormal glucose; I10 Essential (primary) hypertension; R79.82 Elevated C-reactive protein (CRP); I49.9 Cardiac arrhythmia, unspecified; Z51.81 Encounter for therapeutic drug level monitoring; T46.2X1A Poisoning by other antidysrhythmic drugs, accidental (unintentional), initial encounter; E55.9 Vitamin D deficiency, unspecified; E61.1 Iron deficiency; R79.0 Abnormal level of blood mineral; D52.9 Folate deficiency anemia, unspecified; Z79.01 Long term (current) use of anticoagulants; R79.1 Abnormal coagulation profile; E79.0 Hyperuricemia without signs of inflammatory arthritis and tophaceous disease; R70.0 Elevated erythrocyte sedimentation rate
CPT/HCPCS: 36415; 80053; 80061; 83036; 83880; 84443

== ENCOUNTER 2025-09-13 14:33 | Emergency (ER) | payer MEDICARE, BC, SELFPAY ==
[2025-09-13 14:34] VITALS: BP 131/66
[2025-09-13 15:02] LABS: Hematocrit 45.0 % (37.0-47.0); Hemoglobin 15.2 g/dL (12.0-16.0); Mean Corp Hgb Conc. 33.8 g/dL (33.0-37.0); Mean Corpuscular Volume 92.6 fL (81.0-99.0); Nucleated Red Blood Cells % 0 %; Platelet Count 174 10^3/uL (130-400); Red Cell Dist. Width 13.9 % (11.5-14.5)
[2025-09-13 15:19] LABS: ALT (SGPT) 27 U/L (0-35); AST (SGOT) 56 U/L (14-36); Albumin 4.0 g/dl (3.5-5.0); Alkaline Phosphatase 117 U/L (38-126); Blood Urea Nitrogen 16 mg/dl (7-17); Calcium 8.3 mg/dl (8.4-10.2); Carbon Dioxide 24 mmol/L (22-30); Chloride 98 mmol/L (98-107); Glucose 120 mg/dl (70-99); Potassium 4.2 mmol/L (3.5-5.1); Sodium 127 mmol/L (135-145); Total Protein 8.8 g/dl (6.3-8.2); eGFR 48.63
[2025-09-13 17:39] LABS: Urine Character Clear (Clear)
[2025-09-13 17:47] LABS: Urine Red Blood Cell 0-2 /HPF (0-2); Urine Squamous Cell >30 /LPF (Few); Urine White Cell 0-2 /HPF (0-5)
--- NOTE | 2025-09-13 17:52 | ED.GENMED ---
History of Present Illness
<Elizabeth Cotter NP - Last Filed: 09/13/25 22:27>
General
Chief Complaint: Change in Mental Status
Source: spouse and family (Daughter)
Exam Limitations: none
Time Seen by Provider: 09/13/25 16:55
Nursing documentation reviewed up to this point in time: agreed with
History of Present Illness
History of Present Illness:
Patient to the emergency department for evaluation of increasing confusion, frequent falls. According to family patient has been increasingly confused over the past week. She had an episode Thursday where she was unable to get to the bathroom quick
enough and slipped on the urine on tile bathroom floor. Family denies her hitting her head. Last night she fell out of bed. She sustained a large bruise to her right anterior knee. Family again states she did not hit her head. Her
states he tested her urine with a OTC kit and reports her results were positive for UTI. He contacted their PCP who advised them to bring her to the emergency department for evaluation. He denies any episodes of fevers or chills for her she did
have vomiting and diarrhea last p.m. On exam she is awake alert cooperative. She reports right knee pain, otherwise she has no complaints.
Past History
<Elizabeth Cotter NP - Last Filed: 09/13/25 22:27>
Past History
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
ED Past Surgical History: Cholecystectomy, Gynecological (Hysterectomy), Orthopedic (Knee surgery, Right shoulder replacement, Right ankle sx) and Other ( Spencer Cataracts)
Social History
Tobacco: Former smoker
Alcohol: None
Drug: None
Personal:
Living: with family
Family History
Family History: Other
Review of Systems
<Elizabeth Cotter NP - Last Filed: 09/13/25 22:27>
Review of Systems
Allergies reviewed?: Yes
All Other Systems: ROS reviewed and negative except as documented in HPI and ROS
Constitutional: Reports no symptoms
EENT: Reports no symptoms
Respiratory: Reports no symptoms
Cardiac: Reports no symptoms
ABD/GI: Reports vomiting (Last p.m.) and diarrhea (Last p.m.)
: Reports no symptoms
Musculoskeletal: Reports joint pain (Bruising to right anterior knee)
Skin: Reports no symptoms
Neurological: Reports other (Increased confusion)
Psychiatric: Reports no symptoms
Phy Exam
<Elizabeth Cotter [employer]TRIDGE [employer]ER - Last Filed: 09/13/25 22:27>
General Physical Exam
General Presentation: well appearing and no apparent distress
General age: appears stated age
General Skin: warm and dry
General Habitus: normal
General Mental: confused (baseline)
Cardiovascular Exam
Cardiovascular Exam: regular rate/rhythm and no edema
Pulmonary Exam
Pulmonary Exam: lungs clear and no respiratory distress
Gastrointestinal Exam
Gastrointestinal Exam: normal bowel sounds, non tender, soft, no organomegaly, no pulsatile mass and non distended
Neurological Exam
Neurological Exam: alert, CN II-XII intact, no motor deficits, no sensory deficits, speech normal and other (Oriented to person and place. )
Mart Coma Scale
Eye Opening: Spontaneous
Verbal Response: Oriented
Motor Response: Obeys Commands
GCS Total Score: 15
Musculoskeletal Exam
Musculoskeletal Exam: full ROM and neuro vasc intact
Skin Exam
Skin Exam: normal color, warm/dry and no rash
Psychiatric Exam
Psychiatric Exam: normal mood/affect
Nicolelt;Bong Durán DO - Last Filed: 09/13/25 20:14>
Mart Coma Scale
GCS Total Score: 15
Sepsis
<Elizabeth Cotter, [employer]ER - Last Filed: 09/13/25 22:27>
Sepsis Screening
Sepsis Assessment: Sepsis Ruled Out
Sepsis Screen
Sepsis Screen: Sepsis Ruled Out
Date: 09/13/25
Time: 22:27
Course
<Elizabeth Cotter [employer]ER - Last Filed: 09/13/25 22:27>
Orders/Labs/Results
Orders:
Orders
09/13/25 14:46
Complete Blood Count/With Diff Urgent
Comprehensive Metabolic Panel Urgent
Lactate Level [Lactic Acid] Q4H
Blood Culture Urgent
KATHIA Source: Blood/Venous
Specimen Description:
09/13/25 17:22
Urinalysis Reflex To Culture Urgent
Date Specimen was Collected: 09/13/25
Time Specimen was Collected: 17:19
Urine Microscopic Reflex Cult Urgent
Urine Culture Urgent
KATHIA Source: U
Specimen Description:
Date Specimen was Collected: 09/13/25
Time Specimen was Collected: 17:19
09/13/25 17:52
CT Head W/o Iv Contrast Urgent
Comment:
Reason For Exam: altered mental status
Knee, Right 4 or More Views [CR Knee- Right 4 Or More View*] Urgent
Comment:
Reason For Exam: fall
09/13/25 19:22
Cervical Spine wo Contrast CT [CT Cervical Spine W/o Iv Contr] Urgent
Comment:
Reason For Exam: fall
09/13/25 19:30
0.9% Sodium Chloride 1000 ml [Nss] 1,000 ml IV BOLUS
Abnormal Lab Results
09/13/25 09/13/25
14:46 17:22
MCH 31.3 H pg
(27.0-31.0)
MPV 11.6 H fL
(7.4-10.4)
Absolute Monos (auto) 1.1 H 10^3/uL
(0.1-0.6)
Monocytes % 12.3 H %
(1.7-9.3)
Sodium 127 L mmol/L
(135-145)
Creatinine 1.1 H mg/dL
(0.6-1.0)
Glucose 120 H mg/dl
(70-99)
Calcium 8.3 L mg/dl
(8.4-10.2)
Total Bilirubin 1.4 H mg/dl
(0.2-1.3)
AST 56 H U/L
(14-36)
Total Protein 8.8 H g/dl
(6.3-8.2)
Urine Ketones 1+ A
(Negative)
Urine Urobilinogen 2+ A
(Neg - 1+)
Urine Bacteria (Reflex) Moderate A
(Negative)
Urine Albumin (Reflex) 2+ A
(Neg - Trace)
09/13/25 14:46
09/13/25 14:46
Vital Signs
Initial and Last Documented VS:
Initial Vital Signs
Temp Pulse Resp BP Pulse Ox
98.3 F 58 16 131/66 92
09/13/25 14:34 09/13/25 14:34 09/13/25 14:34 09/13/25 14:34 09/13/25 14:34
Last Documented Vital Signs
Temp Pulse Resp BP Pulse Ox
98.3 F 65 24 155/86 94
09/13/25 14:34 09/13/25 21:00 09/13/25 21:00 09/13/25 20:26 09/13/25 20:45
<Bong Durán, DO - Last Filed: 09/13/25 20:14>
Orders/Labs/Results
Orders:
Orders
09/13/25 14:46
Complete Blood Count/With Diff Urgent
Comprehensive Metabolic Panel Urgent
Lactate Level [Lactic Acid] Q4H
Blood Culture Urgent
KATHIA Source: Blood/Venous
Specimen Description:
09/13/25 17:22
Urinalysis Reflex To Culture Urgent
Date Specimen was Collected: 09/13/25
Time Specimen was Collected: 17:19
Urine Microscopic Reflex Cult Urgent
Urine Culture Urgent
KATHIA Source: U
Specimen Description:
Date Specimen was Collected: 09/13/25
Time Specimen was Collected: 17:19
09/13/25 17:52
CT Head W/o Iv Contrast Urgent
Comment:
Reason For Exam: altered mental status
Knee, Right 4 or More Views [CR Knee- Right 4 Or More View*] Urgent
Comment:
Reason For Exam: fall
09/13/25 19:22
Cervical Spine wo Contrast CT [CT Cervical Spine W/o Iv Contr] Urgent
Comment:
Reason For Exam: fall
09/13/25 19:30
0.9% Sodium Chloride 1000 ml [Nss] 1,000 ml IV BOLUS
Abnormal Lab Results
09/13/25 09/13/25
14:46 17:22
MCH 31.3 H pg
(27.0-31.0)
MPV 11.6 H fL
(7.4-10.4)
Absolute Monos (auto) 1.1 H 10^3/uL
(0.1-0.6)
Monocytes % 12.3 H %
(1.7-9.3)
Sodium 127 L mmol/L
(135-145)
Creatinine 1.1 H mg/dL
(0.6-1.0)
Glucose 120 H mg/dl
(70-99)
Calcium 8.3 L mg/dl
(8.4-10.2)
Total Bilirubin 1.4 H mg/dl
(0.2-1.3)
AST 56 H U/L
(14-36)
Total Protein 8.8 H g/dl
(6.3-8.2)
Urine Ketones 1+ A
(Negative)
Urine Urobilinogen 2+ A
(Neg - 1+)
Urine Bacteria (Reflex) Moderate A
(Negative)
Urine Albumin (Reflex) 2+ A
(Neg - Trace)
09/13/25 14:46
09/13/25 14:46
Vital Signs
Initial and Last Documented VS:
Initial Vital Signs
Temp Pulse Resp BP Pulse Ox
98.3 F 58 16 131/66 92
09/13/25 14:34 09/13/25 14:34 09/13/25 14:34 09/13/25 14:34 09/13/25 14:34
Last Documented Vital Signs
Temp Pulse Resp BP Pulse Ox
98.3 F 65 24 155/86 94
09/13/25 14:34 09/13/25 21:00 09/13/25 21:00 09/13/25 20:26 09/13/25 20:45
<Elizabeth Cotter [employer] - Last Filed: 09/13/25 22:27>
*Pulse Oximetry
SaO2: 92
Patient hypoxic: no
<Bong Durán DO - Last Filed: 09/13/25 20:14>
*Critical Care Note
Total Time (30-74mins, 75-104mins- exclusive of procedures): See note
comment:
Critical care statement: A total of 30 minutes of critical care time was provided for this patient. This includes management of unstable vital signs, evaluation of the patient at bedside, reviewing the patient's pertinent medical records, discussion
with consultants, review of old EKGs and review of pertinent medical records. This time with separate from time utilized to perform the aforementioned documented procedures
<Elizabeth Cotter NP - Last Filed: 09/13/25 22:27>
Update Note
Update Note:
Patient brought to the emergency department by his parents increasing confusion. According to spouse symptoms started approximately 3 days ago. Since then she has had 3 falls. Spouse denies that she hit her head during any of those falls. Spouse
was concerned that she had a urinary tract infection so he tested her urine using an [id number] kit. He states the test was positive. He was advised by his PCP to bring patient to the emergency department for further evaluation. On arrival
to ED she is awake and cooperative. She is unable to tell me why she is here but is aware that she is at the hospital. She reports pain to her right anterior knee and there is bruising noted at the joint. Labs reviewed. WBC 8.9 NA 127, this is a
new finding for her. Urine RBC WBC and leukocyte all negative. She was sent for head CT. Findings of an acute intracranial hemorrhage mainly within the right lateral ventricle and third ventricle. There is slight mass effect. Case discussed
with Dr. Durán who also evaluated this patient. CT results were discussed with patient and family. Will need transfer to a trauma facility. Family request transfer to [facility]. Spoke with trauma through [facility] and they have excepted this
patient ED to ED via [facility] ambulance
ED Attending Note
<Elizabeth Cotter NP - Last Filed: 09/13/25 22:27>
-
Portions of this chart may have been created with voice recognition software.� Occasional wrong word or��sound alike� substitutions may have occurred due to the inherent limitations of voice recognition software.
<Bong Durán DO - Last Filed: 09/13/25 20:14>
ED Attending Note
Patient seen and examined by attending physician: Yes
I performed the substantive portion of visit, reviewed & personally made and approve the management plan that is documented in note by myself or KEENAN.: Yes
I performed a history and physical exam of patient and discussed management with resident, I reviewed resident's note and agree with documented findings and plan of care.: Yes
ED Attending Note:
85-year-old female brought to the ER by family for evaluation after 3 falls in the last 36 hours. Patient is pleasantly confused-family states that she has been significantly more confused in the past few days. She typically is able to ambulate.
No vomiting. Vital signs reviewed, patient is awake, alert, moving all extremities symmetrically without focal weakness, no pain on palpation of bilateral lower extremities although she does have healing ecchymosis present over the left knee-more
than a week old, pelvis is stable to rock, GCS is 14 due to confusion, tongue is midline, no facial asymmetry, no pain on palpation of cervical spine. I reviewed all test results with nurse practitioner and family numbers present at bedside
including presence of intraventricular hemorrhage. I discussed with them need for transfer to a trauma facility. They would like patient be transferred to [facility]. Will coordinate.
Discharge Plan
Departure
Patient Disposition: Acute Care Hospital
Date of Disposition: 09/13/25
Time of Disposition: 19:37
Patient with high blood pressure during this ER visit?: No
Condition: Fair
Covid-19: Not Applicable
Discharge Problem:
Intracranial hemorrhage
Prescriptions:
No Action
citalopram 40 mg tablet
40 mg PO DAILY
atenolol 25 mg Tablet
25 mg PO DAILY
Theragen Tablet
1 tab PO DAILY
clopidogrel [Plavix] 75 mg Tablet
75 mg PO DAILY
omeprazole 40 mg Capsule,Delayed Release(Dr/Ec)
40 mg PO DAILY
ascorbic acid (vitamin C) [Vitamin C] 500 mg Tablet
500 mg PO DAILY
ferrous sulfate 325 mg (65 mg iron) Tablet
325 mg PO DAILY
levothyroxine [Synthroid] 112 mcg Tablet
112 mcg PO DAILY
valsartan 160 mg Tablet
160 mg PO DAILY
rosuvastatin [Crestor] 20 mg Tablet
20 mg PO DAILY
melatonin 10 mg Tablet
10 mg PO HS
magnesium oxide 400 mg magnesium Tablet
400 mg PO HS
bupropion HCl [Wellbutrin XL] 300 mg Tablet Extended Release 24 Hr
300 mg PO DAILY
Referrals:
Lainey,SYLVIE Richard [Family Provider, Internal Medicine]
Hospital Transfer
Other hospital: [facility]
I certify that the patient requires transfer: Yes
Discussed case with accepting physician: Amita
Reason for transfer: higher level of care
Interventions
Interventions:
*Risk Screen - Suicide Last Done: 09/13/25 18:42
*General Assessment Last Done: 09/13/25 18:42
*Neglect/Abuse Screening Last Done: 09/13/25 18:42
*ED- Fall Risk Assessment Last Done: 09/13/25 18:42
*ED COVID-19 Vaccine History Last Done: 09/13/25 18:42
*ED Influenza Vaccine History Last Done: 09/13/25 18:42
*Nursing Disposition Last Done: 09/13/25 21:16
ED- Neurological Assessment Last Done: 09/13/25 19:20
Discharge Date and Time
Discharge Date/Time: 09/13/25 21:20
Print Language: FILIPINO
[2025-09-13 18:00] VITALS: BP 135/101
[2025-09-13 18:42] VITALS: BMI 36.3
[2025-09-13 19:17] VITALS: BP 159/85
[2025-09-13] MEDS: NSS 1000 IV (19:33)
[2025-09-13 19:55] VITALS: BP 163/91
[2025-09-13 20:00] VITALS: BP 154/84
[2025-09-13 20:26] VITALS: BP 155/86
== END 2025-09-13 21:20 | disposition short-term general hospital (02) ==
LOC: EMR 14:33
PROVIDERS: Nurse Practitioner; EMERGENCY PHYSICIAN Emergency Medicine; FAMILY PHYSICIAN Nurse Practitioner Adult Health
DX: I62.9 Nontraumatic intracranial hemorrhage, unspecified (principal); S80.01XA Contusion of right knee, initial encounter; W06.XXXA Fall from bed, initial encounter; R29.6 Repeated falls; E03.9 Hypothyroidism, unspecified; E78.00 Pure hypercholesterolemia, unspecified; I10 Essential (primary) hypertension; Z86.73 Personal history of transient ischemic attack (TIA), and cerebral infarction without residual deficits; Z87.891 Personal history of nicotine dependence; Z90.49 Acquired absence of other specified parts of digestive tract; Z90.710 Acquired absence of both cervix and uterus
CPT/HCPCS: 99291; 96360; 70450; 72125; 73564; 80053; 81003; 81015; 83605; 85025; 87040; 87086

== ENCOUNTER → 2025-10-30 10:11 | Outpatient (REF) | payer MEDICARE, BC, SELFPAY ==
[2025-10-30 10:50] LABS: Hematocrit 46.8 % (37.0-47.0); Hemoglobin 15.7 g/dL (12.0-16.0); Mean Corp Hgb Conc. 33.5 g/dL (33.0-37.0); Mean Corpuscular Volume 95.7 fL (81.0-99.0); Nucleated Red Blood Cells % 0 %; Platelet Count 160 10^3/uL (130-400); Red Cell Dist. Width 13.8 % (11.5-14.5)
[2025-10-30 11:16] LABS: ALT (SGPT) 34 U/L (0-35); AST (SGOT) 54 U/L (14-36); Albumin 4.0 g/dl (3.5-5.0); Alkaline Phosphatase 174 U/L (38-126); Blood Urea Nitrogen 11 mg/dl (7-17); Calcium 9.1 mg/dl (8.4-10.2); Carbon Dioxide 29 mmol/L (22-30); Chloride 106 mmol/L (98-107); Glucose 120 mg/dl (70-99); Potassium 4.5 mmol/L (3.5-5.1); Sodium 138 mmol/L (135-145); Total Protein 8.3 g/dl (6.3-8.2); eGFR 54.53
[2025-10-30 12:04] LABS: Glycohemoglobin (HgbA1c) 6.2 % (4.0-5.9)
== END ==
LOC: REG 10:11
PROVIDERS: ATTENDING PHYSICIAN Nurse Practitioner Adult Health
DX: R73.03 Prediabetes (principal); N18.30 Chronic kidney disease, stage 3 unspecified; K74.60 Unspecified cirrhosis of liver; Z79.899 Other long term (current) drug therapy; Z13.29 Encounter for screening for other suspected endocrine disorder
CPT/HCPCS: 36415; 80053; 83036; 84439; 84443; 85025